=== PATIENT | male | born 1985 | race Hispanic/Latino ===

== ENCOUNTER 2016-08-12 23:27 | Emergency (ER) | payer SELFPAY ==
[2016-08-12 23:47] VITALS: BMI 27.8
[2016-08-12 23:51] VITALS: BP 116/81; PULSE 86; RESP 18; TEMP 99.5; O2SAT 98
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
== END 2016-08-13 01:15 | disposition left against medical advice (07) ==
LOC: ED 23:27
DX: L03.211 Cellulitis of face (principal); L02.01 Cutaneous abscess of face; S09.93XA Unspecified injury of face, initial encounter; Y04.8XXA Assault by other bodily force, initial encounter; Y92.410 Unspecified street and highway as the place of occurrence of the external cause; F17.210 Nicotine dependence, cigarettes, uncomplicated

== ENCOUNTER 2017-08-23 19:34 | Emergency (ER) | payer MEDICAID ==
[2017-08-23] MEDS ORDERED: DiphenhydrAMINE 50 mg/ml Inj IVP ONE (19:43)
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
[2017-08-23] MEDS ORDERED: DiphenhydrAMINE 50 mg/ml Inj ONE (19:48)
[2017-08-23] MEDS ORDERED: Famotidine 20mg/50ml 20 MG/50 ML BAG IVPB STA (19:49)
[2017-08-23 19:52] VITALS: BMI 27.1
[2017-08-23 20:00] VITALS: TEMP 99.1
[2017-08-23 20:35] LABS: BASO # 0.01 K/mm3 (0.0-2.0); BASO % 0.1 % (0.0-3.0); EOS % 0.3 % (1.5-5.0); GRAN # 8.64 (1.4-6.5); GRAN % 72.6 % (50.0-68.0); HEMOGLOBIN 12.8 g/dL (14.0-18.0); LYMPH # 2.3 (1.2-3.4); LYMPH % 18.9 % (22.0-35.0); MEAN CELL VOLUME 83.2 fl (80.0-105.0); MEAN CORPUSCULAR HEMOGLOBIN 28.3 pg (25.0-35.0); MEAN PLATELET VOLUME 8.6 fl (7.0-11.0); MONO % 8.1 % (1.0-6.0); RBC 4.52 10^6/uL (3.5-6.1); RED CELL DISTRIBUTION WIDTH 13.4 % (11.5-14.5); WHITE BLOOD COUNT 11.9 10^3/ul (4.5-11.0)
[2017-08-23 20:43] LABS: ALB/GLOB RATIO 1.1 (1.1-1.8); ALBUMIN 4.3 g/dL (3.0-4.8); ALT/SGPT 33 U/L (7-56); AST/SGOT 38 U/L (17-59); BLOOD UREA NITROGEN 15 mg/dL (7-21); GFR AFRICAN-AMERICAN > 60; GFR NON-AFRICAN AMERICAN > 60
[2017-08-23 22:55] VITALS: BP 130/59; PULSE 89; RESP 18; O2SAT 98
== END 2017-08-23 22:45 | disposition home or self-care (01) ==
LOC: ED 19:34
DX: T78.40XA Allergy, unspecified, initial encounter (principal); X58.XXXA Exposure to other specified factors, initial encounter; F17.210 Nicotine dependence, cigarettes, uncomplicated
CPT/HCPCS: 80053; 85025; 96374; 96375; 99285; J1200; J2930